=== PATIENT | female | born 1975 | race Caucasian/White ===

== ENCOUNTER 2016-05-17 12:26 | Emergency (ER) | payer SELFPAY ==
[2016-05-17 12:34] VITALS: BP 111/68; PULSE 78; RESP 16; TEMP 97.7; O2SAT 94
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
== END 2016-05-17 14:02 | disposition home or self-care (01) ==
PROC: 0H9NXZZ Drainage of Left Foot Skin, External Approach (ICD-10-PCS; principal; 2016-05-17)
DX: L02.612 Cutaneous abscess of left foot (principal); Z87.891 Personal history of nicotine dependence

== ENCOUNTER 2016-05-31 20:01 | Emergency (ER) | payer MEDICAID ==
--- NOTE | 2016-05-31 20:35 | EDPHY ---
H & P Time Seen by Provider: 05/31/16 20:30 HPI/ROS: CHIEF COMPLAINT: Concerned foot infection has returned. HISTORY OF PRESENT ILLNESS: This is a 41-year-old female with a history of left foot abscess with I&D on 05/17. She presents because she believes the bottom of her foot has become infected again. She denies fever, drainage, or other complaints. She has been compliant with Keflex and Bactrim, which she began taking a week ago. Her tetanus is up to date. No other complaints at this time. REVIEW OF SYSTEMS: A complete 10-point review of systems was performed and is negative except for those items mentioned in the HPI. Past Medical/Surgical History: Left foot abscess. Social History: Former smoker. Smoking Status: Former smoker Physical Exam: General Appearance: Alert, no distress Neurological: Capillary refill normal Skin: Warm and dry Extremities: Foot-there is a tiny scab on the sole of the foot, without tenderness, erythema or warmth Constitutional: Initial Vital Signs Temperature (C) 36.6 C 05/31/16 20:49 Heart Rate 73 05/31/16 20:49 Respiratory Rate 16 05/31/16 20:49 Blood Pressure 113/62 05/31/16 20:49 O2 Sat (%) 97 05/31/16 20:49 O2 Delivery Mode Room Air Allergies/Adverse Reactions: SOME ANTIPSYCHOTIC Allergy (Uncoded 06/02/16 05:06) Home Medications: Medication Instructions Recorded NK [No Known Home Meds] 05/31/16 Medical Decision Making ED Course/Re-evaluation: There is no evidence of infection. Departure - Departure Disposition: Home, Routine, Self-Care Clinical Impression: Wound check, abscess Condition: Good Instructions: Abscess (ED) Additional Instructions: You do not have an infection of the foot. Your wound is healing well. Establish care with [facility] for your future medical needs. Return to the emergency department if you experience any serious worsening of condition. Referrals: [facility],. [Clinic] - As per Instructions Report Scribed for: Ame Calderon Report Scribed by: Augustin Odell Date of Report: 05/31/16 Time of Report: 20:31 Physician Review and Approval Statement: 05/31/16 20:31 Portions of this note were transcribed by a hospitalist medical director. I personally performed a history, physical exam, medical decision making, and confirmed accuracy of information the transcribed note.
[2016-05-31 20:52] VITALS: BP 113/62; PULSE 73; RESP 16; TEMP 97.9; O2SAT 97
== END 2016-05-31 20:52 | disposition home or self-care (01) ==
DX: Z48.01 Encounter for change or removal of surgical wound dressing (principal); Z87.891 Personal history of nicotine dependence

== ENCOUNTER 2016-06-02 03:56 | Emergency (ER) | payer MEDICAID ==
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
[2016-06-02 05:50] LABS: % IMMATURE GRANULYOCYTES 0.3 % (0.0-1.1); ABSOLUTE IMMATURE GRANULOCYTES 0.02 10^3/uL (0.00-0.10); ADD DIFF? NO; ADD MORPH? NO; ADD SCAN? NO; ATYPICAL LYMPHOCYTE FLAG 0 (0-99); FRAGMENT RBC FLAG 0 (0-99); HEMATOCRIT 37.4 % (38.0-47.0); HEMOGLOBIN 12.1 g/dL (12.6-16.3); LEFT SHIFT FLG 0 (0-99); LIPEMIA HEMOLYSIS FLAG 80 (0-99); MEAN CELL HEMOGLOBIN 26.4 pg (27.9-34.1); MEAN CELL HEMOGLOBIN CONCENTR. 32.4 g/dL (32.4-36.7); MEAN CELL VOLUME 81.5 fL (81.5-99.8); MEAN PLATELET VOLUME 10.1 fL (8.7-11.7); PLATELET CLUMPS FLAG 0 (0-99); PLATELET COUNT 216 10^3/uL (150-400); RED BLOOD CELL COUNT 4.59 10^6/uL (4.18-5.33); RED CELL DISTRIBUTION WIDTH 14.2 % (11.5-15.2)
[2016-06-02 06:04] LABS: ALANINE AMINOTRANSFERASE 36 IU/L (9-52); ALBUMIN 4.1 g/dL (3.5-5.0); ALKALINE PHOSPHATASE 66 IU/L (38-126); ANION GAP 8 mEq/L (8-16); ASPARTATE AMINOTRANSFERASE 24 IU/L (14-46); BILIRUBIN,TOTAL 0.7 mg/dL (0.1-1.4); CALCIUM 9.3 mg/dL (8.5-10.4); CARBON DIOXIDE 20 mEq/l (22-31); CHLORIDE 111 mEq/L (97-110); CREATININE 0.6 mg/dL (0.6-1.0); ETHANOL SERUM < 10 mg/dL (0-10); GLOMERULAR FILTRATION RATE > 60; GLUCOSE 86 mg/dL (70-100); POTASSIUM 3.8 mEq/L (3.5-5.2); SODIUM 139 mEq/L (134-144); TOTAL PROTEIN 6.5 g/dL (6.3-8.2)
[2016-06-02 09:56] VITALS: TEMP 98.4
[2016-06-02 12:17] VITALS: BP 154/75; PULSE 70; RESP 14; O2SAT 94
== END 2016-06-02 11:45 | disposition home or self-care (01) ==
LOC: EDUNIT#
DX: R45.851 Suicidal ideations (principal); Z87.891 Personal history of nicotine dependence
CPT/HCPCS: 80305; G0480

== ENCOUNTER 2016-11-09 17:51 | Emergency (ER) | payer MEDICAID ==
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
[2016-11-09 18:37] VITALS: BP 102/68; PULSE 78; RESP 18; TEMP 98.2; O2SAT 96
== END 2016-11-09 18:37 | disposition home or self-care (01) ==
LOC: EDUNIT#
DX: S20.20XA Contusion of thorax, unspecified, initial encounter (principal); Z87.891 Personal history of nicotine dependence; V18.0XXA Pedal cycle driver injured in noncollision transport accident in nontraffic accident, initial encounter; Y92.480 Sidewalk as the place of occurrence of the external cause; Y93.55 Activity, bike riding

== ENCOUNTER 2017-02-21 17:18 | Emergency (ER) | payer MEDICAID ==
[2017-02-21 17:22] VITALS: TEMP 98.1
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
[2017-02-21] MEDS ORDERED: IBUPROFEN 600 MG TAB PO ONE ×2 (18:51→18:52)
[2017-02-21 18:58] VITALS: BP 108/56; PULSE 72; RESP 14; O2SAT 98
--- NOTE | 2017-02-21 19:03 | ASDISCHSUM ---
Discharge Information Plan Status:Homeless/Custodial Medically Cleared to Leave: Discharge Date:02/21/2017 06:57 PM CM D/C Disposition:Streets (Homeless) ADT D/C Disposition:Home, Routine, Self-Care Projected Discharge Date:02/21/2017 06:57 PM Transportation at D/C:Cab Voucher Discharge Delay Reason: Follow-Up Date:02/21/2017 06:57 PM Discharge Slot: Final Diagnosis: Placement Information Patient Contact Information Contact Name:JAZMINE Relationship: Address: Home Phone: Work Phone: City: Alternate Phone: State/Zip Code: Email: Financial Information Financial Class: Primary Plan Desc:[employer] ENGINEERING INSTRU[employer] Primary Plan Number:[id number] Secondary Plan Desc: Secondary Plan Number: Assessment Information Intervention Information Intervention Type:Cab Vouchers Date of Service:02/21/2017 07:01 PM Patient Type:Emergency Room Staff Member:JAY Juares, Andressa Hours:0.25 Discipline:Search Marketing Specialist Severity: Comment:Cab to fdc
== END 2017-02-21 18:57 | disposition home or self-care (01) ==
LOC: EDUNIT#
DX: S89.92XA Unspecified injury of left lower leg, initial encounter (principal); S99.911A Unspecified injury of right ankle, initial encounter; S79.912A Unspecified injury of left hip, initial encounter; Z87.891 Personal history of nicotine dependence; V19.49XA Pedal cycle driver injured in collision with other motor vehicles in traffic accident, initial encounter; Y92.410 Unspecified street and highway as the place of occurrence of the external cause; Y93.55 Activity, bike riding